=== PATIENT | female | born 1940 | race African-American/Black ===

== ENCOUNTER 2019-07-11 17:02 | Emergency (ER) | payer MEDICARE ==
[~2019-07-11] VITALS: Ht 167.6 cm; Wt 87.0 kg
[~2019-07-11 17:02] MED LIST: ASPIRIN; BENAZEPRIL; CLONIDINE PATCH; LUNESTA; NORCO
[2019-07-11] MEDS ORDERED: KETOROLAC 60MG/2ML VIAL IM ONE (18:30)
[2019-07-11] MEDS ORDERED: TRAMADOL 50MG TABLET PO ONE (18:30)
[2019-07-11] MEDS ORDERED: CLONIDINE 0.2MG TABLET PO ONE (20:45)
[2019-07-11 21:30] VITALS: BP 155/74
== END 2019-07-11 22:17 | disposition home or self-care (01) ==
LOC: ER 17:02
DX: M47.892 Other spondylosis, cervical region (principal); I10 Essential (primary) hypertension
CPT/HCPCS: 72050; 96372; 99283; J1885

== ENCOUNTER 2019-07-13 11:18 | Emergency (ER) | payer MEDICARE ==
[~2019-07-13] VITALS: Ht 167.6 cm; Wt 74.0 kg
[2019-07-13] MEDS ORDERED: IBUPROFEN 600MG TABLET PO STA (11:54)
[2019-07-13] MEDS ORDERED: CYCLOBENZAPRINE 10MG TABLET PO ONE (12:00)
[2019-07-13 12:40] LABS: HEMATOCRIT. 39.4 % (36.0-48.0); HEMOGLOBIN. 13.1 g/dL (12.0-16.0); MEAN CORPUSCULAR VOLUME 96.3 fL (81.0-99.0); MEAN PLATELET VOLUME 7.9 fl (7.4-10.4); PLATELET 305 x1000/uL (130-400); RED BLOOD CELL COUNT 4.09 mill/uL (4.2-5.4); RED CELL DISTRIBUTION WIDTH 14.1 % (11.6-14.6)
[2019-07-13 12:43] LABS: CHLORIDE 106 mEq/L (98-107)
[2019-07-13 13:23] LABS: PLATELET ESTIMATE NORMAL
[2019-07-13 13:28] LABS: COLOR URINE YELLOW (YELLOW); KETONES URINE NEGATIVE (NEGATIVE); LEUKOCYTE ESTERASE URINE NEGATIVE (NEGATIVE); NITRITE URINE NEGATIVE (NEGATIVE); OCCULT BLOOD URINE NEGATIVE (NEGATIVE); PROTEIN URINE NEGATIVE (NEGATIVE); SPECIFIC GRAVITY URINE 1.013 (1.005-1.030); UROBILINOGEN URINE 0.2 E.U./dL (0.2-1.0)
[2019-07-13 13:29] LABS: CLARITY URINE CLEAR (CLEAR)
[2019-07-13 14:58] VITALS: BP 169/82
== END 2019-07-13 15:06 | disposition home or self-care (01) ==
LOC: ER 11:18
DX: M62.838 Other muscle spasm (principal)
CPT/HCPCS: 36415; 81003; 99283